=== PATIENT | female | born 1980 ===

== ENCOUNTER 2025-04-11 17:33 | Emergency (ER) | payer OTHER ==
[~2025-04-11] VITALS: Ht 157.5 cm; Wt 59.0 kg
[2025-04-11 17:33] VITALS: BP 124/70
[2025-04-11] MEDS ORDERED: IBUPROFEN (18:09)
[2025-04-11] MEDS ORDERED: ANTIBIOTIC (18:09)
[2025-04-11] MEDS: CARBAMAZEPINE 200 MG TABLET PO ONE (20:53)
[2025-04-11] MEDS ORDERED: AMOX-430 PO (22:00)
[2025-04-11] MEDS ORDERED: FLUT16SP BNOSTRILS (22:00)
[2025-04-11 22:11] VITALS: BP 124/70; O2SAT 98
== END 2025-04-11 22:14 | disposition home or self-care (01) ==
LOC: ER 17:49
DX: J32.0 Chronic maxillary sinusitis (principal)
CPT/HCPCS: 70450; 70486; A4606; A4663